=== PATIENT | male | born 1990 | race Caucasian/White ===

== ENCOUNTER 2021-01-13 21:14 | Emergency (ER) | payer OTHER ==
[~2021-01-13] VITALS: Ht 177.8 cm; Wt 68.6 kg
[2021-01-13 21:15] VITALS: BP 127/85
--- NOTE | 2021-01-13 22:26 | REPVR ---
PROCEDURE INFORMATION: Exam: XR Left Hand Exam date and time: 01/13/2021 9:32 PM Age: 30 years old Clinical indication: Pain; Hand; Left TECHNIQUE: Imaging protocol: XR Left hand. Views: 3 or more views. COMPARISON: No relevant prior studies available. FINDINGS: Bones/joints: Normal. Soft tissues: Normal. IMPRESSION: No acute findings. Electronically signed by: Jesús Haile On 01/13/2021 22:25:52 PM
[2021-01-14] MEDS ORDERED: DOXYCYCLINE HYCLATE 100MG TABLET PO ONE (00:10)
[2021-01-14] MEDS ORDERED: NAPROXEN 250 MG TAB PO ONE (00:10)
[2021-01-14 00:53] LABS: BASO # 0.1 10^3/uL (0.0-0.2); BASO % 0.7 % (0.0-1.0); EOS # 0.4 10^3/uL (0.0-0.5); EOS % 3.8 % (0.0-3.0); HEMATOCRIT 50.6 % (42.0-52.0); HEMOGLOBIN 17.4 g/dl (13.5-17.5); LYMPH # 2.7 10^3/uL (1.5-5.0); LYMPH % 28.3 % (24.0-44.0); MEAN CORPUSCULAR HEMOGLOBIN 32.9 pg (27.0-33.0); MEAN CORPUSCULAR HGB CONC 34.4 g/dl (32.0-36.5); MEAN CORPUSCULAR VOLUME 95.7 fl (80.0-96.0); MONO # 0.7 10^3/uL (0.0-0.8); MONO % 6.9 % (2.0-8.0); NEUTROPHILS # 5.7 10^3/uL (1.5-8.5); NEUTROPHILS % 60.1 % (36.0-66.0); PLATELET COUNT, AUTOMATED 236 10^3/uL (150-450); RED BLOOD COUNT 5.29 10^6/uL (4.30-6.10); WHITE BLOOD COUNT 9.4 10^3/uL (4.0-10.0)
[2021-01-14 01:10] LABS: BLOOD UREA NITROGEN 8 MG/DL (7-18); CALCIUM LEVEL 8.8 MG/DL (8.5-10.1); CARBON DIOXIDE LEVEL 29 MEQ/L (21-32); CHLORIDE LEVEL 107 MEQ/L (98-107); GLOMERULAR FILTRATION RATE > 60.0 (>60); GLUCOSE, FASTING 83 MG/DL (70-100); POTASSIUM SERUM 4.1 MEQ/L (3.5-5.1); RHEUMATOID FACTOR QUANT < 10.0 IU/ML (<15.0); SODIUM LEVEL 138 MEQ/L (136-145); URIC ACID 6.1 MG/DL (3.5-7.2)
[2021-01-14 01:29] LABS: ERYTHROCYTE SEDIMENTATION RATE 1 mm/hr (0-15)
[2021-01-14] MEDS ORDERED: DOXY1CAP62 PO (01:54)
[2021-01-14] MEDS ORDERED: NAPR-837 PO (01:54)
[2021-01-15 11:09] LABS: ANTINUCLEAR ANTIBODIES DIRECT Negative (Negative)
== END 2021-01-14 02:15 | disposition home or self-care (01) ==
LOC: M ED 21:14
DX: M65.88 Other synovitis and tenosynovitis, other site (principal); F17.210 Nicotine dependence, cigarettes, uncomplicated

== ENCOUNTER → 2024-03-05 | Outpatient (REF) | payer OTHER ==
[~2024-03-05] MED LIST: DOXY-323 PO; NAPR-837 PO
== END ==
LOC: M LAB REF 12:13
PROVIDERS: ATTEND Physician Assistant
DX: R50.9 Fever, unspecified (principal)

== ENCOUNTER → 2024-07-22 | Outpatient (REF) | payer OTHER ==
[~2024-07-22] MED LIST changes: -DOXY-323 PO; +DOXY-441 PO
== END ==
LOC: M LAB REF 18:06
PROVIDERS: ATTEND Physician Assistant Medical
DX: B34.9 Viral infection, unspecified (principal)